=== PATIENT | male | born 1990 | race Caucasian/White ===

== ENCOUNTER 2017-08-10 21:33 | Emergency (ER) | payer SELFPAY ==
[~2017-08-10] VITALS: Ht 190.5 cm; Wt 99.8 kg
[~2017-08-10 21:33] MED LIST: ARIP10; CEPH500 PO; CYCL10 PO; ERYT.5TO OU; HYDACE5 PO; IBUP800 PO; OFLO.3OPSO OP; OXYACE5T PO; PRED10 PO; RANI150 PO; RXERYTOPTH OP; RXOXYACE PO; RXTRAM50 PO; SULTRIDS PO; TOBR.3OPSO OD; [UNRECOGNIZED DRUG - CODE]
== END 2017-08-10 23:46 | disposition home or self-care (01) ==
LOC: ER 21:33
DX: S20.211A Contusion of right front wall of thorax, initial encounter (principal); F17.210 Nicotine dependence, cigarettes, uncomplicated; W22.8XXA Striking against or struck by other objects, initial encounter
CPT/HCPCS: 71046; 99283

== ENCOUNTER 2019-12-02 17:44 | Emergency (ER) | payer SELFPAY ==
[~2019-12-02] VITALS: Ht 188 cm; Wt 90.7 kg
[2019-12-02 18:37] LABS: BASOPHILS PERCENT AUTO 1 % (0-2); EOSINOPHILS ABSOLUTE AUTO 0.81 K/mm3 (0.00-0.68); EOSINOPHILS PERCENT AUTO 11 % (0-6); Hematocrit 45.9 % (37.0-53.0); Hemoglobin 15.3 g/dL (13.5-17.5); IMMATURE GRAN ABSOLUTE AUTO 0.01 K/mm3 (0.00-0.10); IMMATURE GRAN PERCENT AUTO 0 % (0-1); LYMPHOCYTES ABSOLUTE AUTO 2.58 K/mm3 (0.84-5.20); LYMPHOCYTES PERCENT AUTO 35 % (21-46); MONOCYTES ABSOLUTE AUTO 0.59 K/mm3 (0.16-1.47); MONOCYTES PERCENT AUTO 8 % (4-13); Mean Corpuscular HGB 29.2 pg (26.0-34.0); Mean Corpuscular HGB Conc 33.3 g/dL (31.5-36.5); Mean Corpuscular Volume 88 fL (80-100); Mean Platelet Volume 10.5 fL (9.1-12.4); NEUTROPHILS ABSOLUTE AUTO 3.33 K/mm3 (1.96-9.15); NEUTROPHILS PERCENT AUTO 45 % (41-73); Platelet Count 186 K/mm3 (150-400); RDW Coefficient Variation 12.9 % (11.7-14.2); Red Blood Cell Count 5.24 M/mm3 (4.30-5.90); White Blood Cell Count 7.42 K/mm3 (4.00-11.30)
[2019-12-02 19:02] LABS: Alanine Aminotransfer (ALT/SGP 24 U/L (12-78); Albumin, Blood 4.3 g/dL (3.4-5.0); Albumin/Globulin Ratio 1.3 (0.8-1.8); Alk Phos 54 U/L (50-136); Anion Gap 4 mmol/L (6-16); Aspartate Aminotrans (AST/SGOT 29 U/L (12-37); Bilirubin, Total 0.9 mg/dL (0.1-1.0); Blood Urea Nitrogen 16 mg/dL (8-24); Bun/Creatinine Ratio 19.3 (12.0-20.0); CO2, Blood 26 mmol/L (21-32); Calcium, Blood 9.1 mg/dL (8.5-10.1); Chloride, Blood 107 mmol/L (98-108); Creatinine, Blood 0.83 mg/dL (0.60-1.20); Globulin, Blood 3.4 g/dL (2.2-4.0); Glomerular Filtration Rate >60 (60-); Glucose, Blood 102 mg/dL (70-99); Potassium, Blood 4.2 mmol/L (3.5-5.5); Sodium, Blood 137 mmol/L (136-145); Total Protein, Blood 7.7 g/dL (6.4-8.2)
== END 2019-12-02 19:13 | disposition home or self-care (01) ==
LOC: ER 17:44
PROVIDERS: Emergency Medicine
DX: Z00.00 Encounter for general adult medical examination without abnormal findings (principal); F17.210 Nicotine dependence, cigarettes, uncomplicated
CPT/HCPCS: 36415; 80053; 83690; 85025; 93005; 93010; 99283-25

== ENCOUNTER 2020-06-07 20:16 | Emergency (ER) | payer SELFPAY ==
[~2020-06-07] VITALS: Ht 190.5 cm; Wt 104.3 kg
[2020-06-07] MEDS ORDERED: Amoxicillin500 MG PO (20:38)
[2020-06-07] MEDS ORDERED: TRAM50 PO (20:38)
== END 2020-06-07 21:13 | disposition home or self-care (01) ==
LOC: ER 20:16
DX: K02.9 Dental caries, unspecified (principal); F17.210 Nicotine dependence, cigarettes, uncomplicated
CPT/HCPCS: 99282; A9270

== ENCOUNTER 2020-06-10 01:40 | Emergency (ER) | payer SELFPAY ==
[~2020-06-10] VITALS: Ht 190.5 cm; Wt 99.8 kg
[~2020-06-10 01:40] MED LIST changes: +Amoxicillin500 MG PO; +TRAM50 PO
[2020-06-10] MEDS ORDERED: Amoxicillin875 MG PO (02:08)
[2020-06-10] MEDS ORDERED: IBUP800 PO (02:08)
== END 2020-06-10 02:18 | disposition home or self-care (01) ==
LOC: ER 01:40
DX: K08.89 Other specified disorders of teeth and supporting structures (principal); F17.210 Nicotine dependence, cigarettes, uncomplicated
CPT/HCPCS: 99282; A9270

== ENCOUNTER 2020-11-14 03:40 | Emergency (ER) | payer SELFPAY ==
[~2020-11-14] VITALS: Ht 193 cm; Wt 88.5 kg
[~2020-11-14 03:40] MED LIST changes: +Amoxicillin875 MG PO
[2020-11-14] MEDS ORDERED: AMOCLA875 PO (04:09)
== END 2020-11-14 04:35 | disposition home or self-care (01) ==
LOC: ER 03:40
DX: S51.011A Laceration without foreign body of right elbow, initial encounter (principal); F17.200 Nicotine dependence, unspecified, uncomplicated; W45.8XXA Other foreign body or object entering through skin, initial encounter
CPT/HCPCS: 12002; 99283; A9270

== ENCOUNTER 2022-07-07 08:21 | Emergency (ER) | payer OTHER ==
[~2022-07-07] VITALS: Ht 190.5 cm; Wt 90.7 kg
[~2022-07-07 08:21] MED LIST changes: +AMOCLA875 PO
== END 2022-07-07 10:16 | disposition home or self-care (01) ==
LOC: ER 08:21
DX: S16.1XXA Strain of muscle, fascia and tendon at neck level, initial encounter (principal); V43.52XA Car driver injured in collision with other type car in traffic accident, initial encounter; F17.210 Nicotine dependence, cigarettes, uncomplicated
CPT/HCPCS: 72125

== ENCOUNTER 2023-04-03 19:16 | Emergency (ER) | payer SELFPAY ==
[~2023-04-03] VITALS: Ht 190.5 cm; Wt 93.0 kg
[2023-04-03 20:15] LABS: BASOPHILS ABSOLUTE AUTO 0.03 K/mm3 (0.00-0.23); BASOPHILS PERCENT AUTO 0 % (0-2); EOSINOPHILS ABSOLUTE AUTO 0.12 K/mm3 (0.00-0.68); EOSINOPHILS PERCENT AUTO 1 % (0-6); Hematocrit 36.9 % (37.0-53.0); Hemoglobin 12.9 g/dL (13.5-17.5); IMMATURE GRAN ABSOLUTE AUTO 0.03 K/mm3 (0.00-0.10); IMMATURE GRAN PERCENT AUTO 0 % (0-1); LYMPHOCYTES ABSOLUTE AUTO 2.06 K/mm3 (0.84-5.20); LYMPHOCYTES PERCENT AUTO 18 % (21-46); MONOCYTES ABSOLUTE AUTO 0.82 K/mm3 (0.16-1.47); MONOCYTES PERCENT AUTO 7 % (4-13); Mean Corpuscular Volume 86 fL (80-100); Mean Platelet Volume 9.6 fL (9.1-12.4); NEUTROPHILS ABSOLUTE AUTO 8.74 K/mm3 (1.96-9.15); NEUTROPHILS PERCENT AUTO 74 % (41-73); Platelet Count 180 K/mm3 (150-400); RDW Coefficient Variation 13.2 % (11.7-14.2); RDW Standard Deviation 41.1 fL (35.1-46.3)
[2023-04-03 20:34] LABS: Albumin/Globulin Ratio 1.2 (0.8-1.8); Bilirubin, Total 1.1 mg/dL (0.1-1.0); Bun/Creatinine Ratio 7.7 (12.0-20.0); Calcium, Blood 8.7 mg/dL (8.5-10.1); Creatinine, Blood 0.78 mg/dL (0.60-1.20); Globulin, Blood 3.2 g/dL (2.2-4.0); Potassium, Blood 3.7 mmol/L (3.5-5.5); Total Protein, Blood 7.2 g/dL (6.4-8.2)
[2023-04-04] MEDS ORDERED: OMEP20ER PO (00:22)
[2023-04-04 00:45] VITALS: BP 129/77
== END 2023-04-04 00:45 | disposition home or self-care (01) ==
LOC: ER 19:16
PROVIDERS: Student in an Organized Health Care Education/Training Program
DX: R10.13 Epigastric pain (principal); F17.210 Nicotine dependence, cigarettes, uncomplicated
CPT/HCPCS: 76705; 80053; 83690; 84484; 85025; 96374; 96375; 99284-25; A9270; J2405; J3010